=== PATIENT | female | born 1935 | race Caucasian/White ===

== ENCOUNTER → 2016-12-30 | Outpatient (CLI) | payer MEDICARE ==
[~2016-12-30] MED LIST: ADVIL200 M1 PO; ALEVE220 MG PO; CITRACAL + D M1 EACH PO; DULERA 200 MCG8.8 GM INH; DYMISTA NASAL S23 GM; FLOVENT DISKUS50 MCG INH; IPRATROPIUM BRO30 ML; KLONOPIN TAB 00.5 MG PO; LOSARTAN POTAS100 MG PO; NORCO 5-325 TA1 EACH PO; PRAVASTATIN SOD10 MG PO; PREDNISONE2.5 MG PO; PROAIR HFA8.5 GM INH; PROTONIX 40 MG40 M1 PO; SINGULAIR10 MG PO; TESSALON PERLE100 MG PO; ZYRTEC10 M3 PO
[2016-12-30 12:19] LABS: RED BLOOD COUNT 3.93 M/UL (4.00-5.10); WHITE BLOOD COUNT 10.1 K/UL (4.5-11.0)
== END ==
LOC: OPSV2 11:30
PROVIDERS: Orthopaedic Surgery
DX: Z01.812 Encounter for preprocedural laboratory examination (principal); Z01.810 Encounter for preprocedural cardiovascular examination; Z01.818 Encounter for other preprocedural examination; S32.039A Unspecified fracture of third lumbar vertebra, initial encounter for closed fracture; Z88.0 Allergy status to penicillin; Z88.3 Allergy status to other anti-infective agents; Z88.8 Allergy status to other drugs, medicaments and biological substances
CPT/HCPCS: 36415; 71020; 80048; 81001; 85025; 93005

== ENCOUNTER → 2016-12-31 | Day surgery (SDC) | payer MEDICARE ==
[~2016-12-31] VITALS: Ht 157.5 cm; Wt 57.2 kg
== END | disposition home or self-care (01) ==
LOC: OR 10:02
PROVIDERS: Orthopaedic Surgery
PROC: 0QU03JZ Supplement Lumbar Vertebra with Synthetic Substitute, Percutaneous Approach (ICD-10-PCS; 2016-12-31)
PROC: 0QB03ZX Excision of Lumbar Vertebra, Percutaneous Approach, Diagnostic (ICD-10-PCS; 2016-12-31)
PROC: 0QS03ZZ Reposition Lumbar Vertebra, Percutaneous Approach (ICD-10-PCS; principal; 2016-12-31 14:45)
DX: S32.039A Unspecified fracture of third lumbar vertebra, initial encounter for closed fracture (principal); M81.0 Age-related osteoporosis without current pathological fracture; I10 Essential (primary) hypertension; J45.909 Unspecified asthma, uncomplicated; M19.90 Unspecified osteoarthritis, unspecified site; K21.9 Gastro-esophageal reflux disease without esophagitis; G89.29 Other chronic pain; Z79.52 Long term (current) use of systemic steroids; Z88.0 Allergy status to penicillin; Z88.1 Allergy status to other antibiotic agents; Z88.8 Allergy status to other drugs, medicaments and biological substances; Z79.899 Other long term (current) drug therapy; Z96.642 Presence of left artificial hip joint; Z90.49 Acquired absence of other specified parts of digestive tract; Z98.41 Cataract extraction status, right eye; Z98.42 Cataract extraction status, left eye; X50.0XXA Overexertion from strenuous movement or load, initial encounter
CPT/HCPCS: 20240; J2270; J2930; J3010; J7030; J7120; Q9962

== ENCOUNTER → 2020-11-08 | Outpatient (CLI) | payer MEDICARE | LOC: HEART 5 14:28 | DX: R05 Cough (principal); R06.02 Shortness of breath; R91.8 Other nonspecific abnormal finding of lung field; S22.008A Other fracture of unspecified thoracic vertebra, initial encounter for closed fracture; R94.2 Abnormal results of pulmonary function studies; X58.XXXA Exposure to other specified factors, initial encounter | CPT/HCPCS: 71046; 94060; 94729 ==

== ENCOUNTER 2021-05-08 16:30 | Inpatient (IN) | payer MEDICARE ==
[~2021-05-08] VITALS: Ht 157.5 cm; Wt 44.5 kg
[~2021-05-08 16:30] MED LIST changes: -KLONOPIN TAB 00.5 MG PO; -LOSARTAN POTAS100 MG PO; -PRAVASTATIN SOD10 MG PO; -PREDNISONE2.5 MG PO; -PROAIR HFA8.5 GM INH; -PROTONIX 40 MG40 M1 PO
[2021-05-08 18:37] LABS: BUN/CREATININE RATIO 20 (0-10)
[2021-05-08 18:53] LABS: HEMOGLOBIN 12.1 gm/dl (12.3-15.3); RED BLOOD COUNT 4.01 M/UL (4.00-5.10); WHITE BLOOD COUNT 18.7 K/UL (4.5-11.0)
[2021-05-09 06:15] LABS: HEMOGLOBIN 11.7 gm/dl (12.3-15.3); RED BLOOD COUNT 3.75 M/UL (4.00-5.10)
[2021-05-09 06:23] LABS: WHITE BLOOD COUNT 11.7 K/UL (4.5-11.0)
[2021-05-09 06:41] LABS: BUN/CREATININE RATIO 18 (0-10)
[2021-05-09] MEDS ORDERED: PROTONIX 40 MG40 M1 PO (11:47)
[2021-05-09] MEDS ORDERED: PREDNISONE5 MG PO (11:48)
[2021-05-09] MEDS ORDERED: MYRBETRIQ25 MG PO (11:48)
[2021-05-09] MEDS ORDERED: BUDESONIDE-FO10.2 G1 INH (11:49)
[2021-05-09] MEDS ORDERED: SPIRIVA HANDIH18 MCG INH (11:50)
[2021-05-09] MEDS ORDERED: COZAAR 50MG TAB50 MG PO (11:53)
[2021-05-09] MEDS ORDERED: PROAIR HFA8.5 GM INH (11:54)
[2021-05-09] MEDS ORDERED: PRAVASTATIN SOD10 MG PO (11:56)
[2021-05-09] MEDS ORDERED: KLONOPIN2 MG PO (12:03)
[2021-05-09] MEDS ORDERED: SENNA S TABLET1 EACH PO (12:46)
[2021-05-09] MEDS ORDERED: MIRALAX17 GM PO (12:47)
[2021-05-09] MEDS ORDERED: ESTRACE42.5 GM TOP (12:50)
[2021-05-09] MEDS ORDERED: MULTIVITAMIN1 EACH PO (12:51)
[2021-05-09] MEDS ORDERED: LIDOCAINE1 EAC1 TP (12:51)
[2021-05-10 00:50] LABS: RED BLOOD COUNT 3.52 M/UL (4.00-5.10)
[2021-05-10 00:53] LABS: WHITE BLOOD COUNT 15.7 K/UL (4.5-11.0)
[2021-05-10 01:09] LABS: BUN/CREATININE RATIO 21 (0-10)
[2021-05-11 07:35] LABS: HEMOGLOBIN 9.3 gm/dl (12.3-15.3); WHITE BLOOD COUNT 15.3 K/UL (4.5-11.0)
[2021-05-11 07:52] LABS: RED BLOOD COUNT 3.13 M/UL (4.00-5.10)
[2021-05-11 08:34] LABS: BUN/CREATININE RATIO 24 (0-10)
[2021-05-11 18:07] LABS: BUN/CREATININE RATIO 29 (0-10)
[2021-05-12 08:02] LABS: HEMOGLOBIN 9.2 gm/dl (12.3-15.3); RED BLOOD COUNT 3.14 M/UL (4.00-5.10); WHITE BLOOD COUNT 15.7 K/UL (4.5-11.0)
[2021-05-12 08:18] LABS: BUN/CREATININE RATIO 20 (0-10)
[2021-05-13 07:16] LABS: HEMOGLOBIN 8.8 gm/dl (12.3-15.3); RED BLOOD COUNT 2.99 M/UL (4.00-5.10)
[2021-05-13 07:20] LABS: WHITE BLOOD COUNT 11.5 K/UL (4.5-11.0)
[2021-05-13 07:34] LABS: BUN/CREATININE RATIO 18 (0-10)
[2021-05-13 17:41] LABS: BORDETELLA PARAPERTUSSIS Not Detected (Not Detectd); BORDETELLA PERTUSSIS Not Detected (Not Detectd); CHLAMYDIA PNEUMONIAE Not Detected (Not Detectd); CORONAVIRUS HKU1 Not Detected (Not Detectd); CORONAVIRUS NL63 Not Detected (Not Detectd); CORONAVIRUS OC43 Not Detected (Not Detectd); CORONOAVIRUS 229E Not Detected (Not Detectd); HUMAN METAPNEUMOVIRUS Not Detected (Not Detectd); HUMAN RHINOVIRUS/ENTEROVIRUS Not Detected (Not Detectd); INFLUENZA A Not Detected (Not Detectd); INFLUENZA B Not Detected (Not Detectd); MYCOPLASMA PNEUMONIAE Not Detected (Not Detectd); PARAINFLUENZA VIRUS 1 Not Detected (Not Detectd); PARAINFLUENZA VIRUS 2 Not Detected (Not Detectd); PARAINFLUENZA VIRUS 3 Not Detected (Not Detectd); PARAINFLUENZA VIRUS 4 Not Detected (Not Detectd); RESPIRATORY SYNCYTIAL VIRUS Not Detected (Not Detectd)
[2021-05-13 22:40] LABS: SARS-CoV-2 NOT DETECTED (Not Detectd)
[2021-05-14 08:23] LABS: HEMOGLOBIN 9.5 gm/dl (12.3-15.3); WHITE BLOOD COUNT 11.7 K/UL (4.5-11.0)
[2021-05-14 08:28] LABS: RED BLOOD COUNT 3.31 M/UL (4.00-5.10)
[2021-05-14 08:43] LABS: BUN/CREATININE RATIO 23 (0-10)
[2021-05-15 06:12] LABS: RED BLOOD COUNT 2.77 M/UL (4.00-5.10)
[2021-05-15 06:35] LABS: BUN/CREATININE RATIO 21 (0-10)
--- NOTE | 2021-05-15 23:30 | NUR ---
2300- 250 ML NS BOLUS STARTED IN 20G IV IN RIGHT UPPER ARM. 2315- BOLUS COMPLETE. BP 99/58. 2ND 250 ML NS BOLUS STARTED. 2330- BOLUS COMPLETE. BP 110/53.
[2021-05-16 07:36] LABS: BUN/CREATININE RATIO 26 (0-10)
[2021-05-16 07:42] LABS: HEMOGLOBIN 8.7 gm/dl (12.3-15.3); RED BLOOD COUNT 2.91 M/UL (4.00-5.10); WHITE BLOOD COUNT 10.1 K/UL (4.5-11.0)
[2021-05-17 07:46] LABS: HEMOGLOBIN 8.3 gm/dl (12.3-15.3); RED BLOOD COUNT 2.84 M/UL (4.00-5.10); WHITE BLOOD COUNT 10.7 K/UL (4.5-11.0)
[2021-05-17 07:51] LABS: BUN/CREATININE RATIO 21 (0-10)
[2021-05-17] MEDS ORDERED: HYDROCODON-ACE1 EAC4 PO (11:18)
[2021-05-17] MEDS ORDERED: LEVOFLOXACIN750 MG PO (11:24)
[2021-05-17] MEDS ORDERED: ELIQUIS 2.5 MG2.5 MG PO (14:15)
--- NOTE | 2021-05-17 16:08 | NUR ---
CHANGED AQUACEL PER [facility] VERBAL ORDER SITE CDI.
--- NOTE | 2021-05-18 10:53 | NUR ---
05/17/21 GAVE REPORT TO KELLI FROM [employer] FOR PT DC INSTRUCTIONS
== END 2021-05-18 20:01 | disposition home health service (06) | DRG 521 ==
LOC: ER1 16:30 → CDU 20:32 → M/S 20:32 → CDU 05-09 18:04 → M/S 05-09 18:40
PROVIDERS: Internal Medicine; Internal Medicine Nephrology; Orthopaedic Surgery; Physician Assistant; Physician Assistant Medical; Student in an Organized Health Care Education/Training Program; ADMIT Internal Medicine
PROC: 0SRR0JA Replacement of Right Hip Joint, Femoral Surface with Synthetic Substitute, Uncemented, Open Approach (ICD-10-PCS; principal; 2021-05-09 09:30)
DX: S72.001A Fracture of unspecified part of neck of right femur, initial encounter for closed fracture (principal); I21.A1 Myocardial infarction type 2; J12.9 Viral pneumonia, unspecified; J96.21 Acute and chronic respiratory failure with hypoxia; J98.19 Other pulmonary collapse; E22.2 Syndrome of inappropriate secretion of antidiuretic hormone; E87.2 Acidosis; E44.1 Mild protein-calorie malnutrition; J98.11 Atelectasis; Z68.1 Body mass index [BMI] 19.9 or less, adult; Z20.822 Contact with and (suspected) exposure to COVID-19; K21.9 Gastro-esophageal reflux disease without esophagitis; Z96.642 Presence of left artificial hip joint; W18.30XA Fall on same level, unspecified, initial encounter; I10 Essential (primary) hypertension; E83.42 Hypomagnesemia; E87.6 Hypokalemia; D50.9 Iron deficiency anemia, unspecified; G89.29 Other chronic pain; M54.9 Dorsalgia, unspecified; F41.9 Anxiety disorder, unspecified; R53.81 Other malaise; Z99.81 Dependence on supplemental oxygen; Z79.52 Long term (current) use of systemic steroids; Z79.82 Long term (current) use of aspirin; Z90.49 Acquired absence of other specified parts of digestive tract; Y93.89 Activity, other specified; Y92.89 Other specified places as the place of occurrence of the external cause; Y99.8 Other external cause status; Z88.0 Allergy status to penicillin; Z88.1 Allergy status to other antibiotic agents
CPT/HCPCS: 36415; 71045; 73502; 80048; 80053; 81001; 82436; 82533; 82550; 82553; 82570; 82607; 82728; 82746; 83540; 83550; 83735; 83935; 84295; 84300; 84439; 84443; 84484; 85025; 85027; 85610; 87633; 93005; 94640; 94760; 96374; 97110; 97110-GP-CQ; 97116; 97116-GP-CQ; 97162; 97165; 97530; 97530-GP-CQ; 97535; 99285; C1776; J0690; J1100; J1170; J1335; J1956; J2001; J2270; J2405; J2704; J2795; J3480; J7030; J7120; Q9967; U0002

== ENCOUNTER → 2021-08-22 | Outpatient (CLI) | payer MEDICARE ==
[~2021-08-22] MED LIST changes: +BUDESONIDE-FO10.2 G1 INH; +COZAAR 50MG TAB50 MG PO; +ELIQUIS 2.5 MG2.5 MG PO; +ESTRACE42.5 GM TOP; +HYDROCODON-ACE1 EAC4 PO; +KLONOPIN2 MG PO; +LEVOFLOXACIN750 MG PO; +LIDOCAINE1 EAC1 TP; +MIRALAX17 GM PO; +MULTIVITAMIN1 EACH PO; +MYRBETRIQ25 MG PO; +PRAVASTATIN SOD10 MG PO; +PREDNISONE5 MG PO; +PROAIR HFA8.5 GM INH; +PROTONIX 40 MG40 M1 PO; +SENNA S TABLET1 EACH PO; +SPIRIVA HANDIH18 MCG INH
== END ==
LOC: MRI 08-17 10:00 → KOH-I 12:51 → MRI 13:45
DX: S32.030A Wedge compression fracture of third lumbar vertebra, initial encounter for closed fracture (principal); M81.0 Age-related osteoporosis without current pathological fracture; M54.50 Low back pain, unspecified; M40.204 Unspecified kyphosis, thoracic region; S22.080A Wedge compression fracture of T11-T12 vertebra, initial encounter for closed fracture
CPT/HCPCS: 72146; 72148

== ENCOUNTER 2022-02-24 10:30 | Observation (INO) | payer MEDICARE ==
[~2022-02-24] VITALS: Ht 157.5 cm; Wt 45.4 kg
[~2022-02-24 10:30] MED LIST changes: -LIDOCAINE1 EAC1 TP; +Lidocaine 5% TOP
[2022-02-24 11:13] LABS: HEMOGLOBIN 13.1 gm/dl (12.3-15.3); RED BLOOD COUNT 4.07 M/UL (4.00-5.10); WHITE BLOOD COUNT 17.9 K/UL (4.5-11.0)
[2022-02-24 11:40] LABS: BUN/CREATININE RATIO 23 (0-10)
[2022-02-24] MEDS ORDERED: ACETAMINOPHEN-1 EAC1 PO (14:42)
[2022-02-24] MEDS ORDERED: FLONASE 0.05% N16 GM (14:44)
[2022-02-24] MEDS ORDERED: LOSARTAN POTASS50 MG PO (14:47)
[2022-02-24] MEDS ORDERED: METHOCARBAMOL500 MG PO (14:48)
[2022-02-24] MEDS ORDERED: FLOMAX 0.4 MG0.4 MG PO (14:54)
[2022-02-25 02:39] LABS: HEMOGLOBIN 11.4 gm/dl (12.3-15.3)
[2022-02-25 02:43] LABS: RED BLOOD COUNT 3.57 M/UL (4.00-5.10); WHITE BLOOD COUNT 10.4 K/UL (4.5-11.0)
[2022-02-25 03:31] LABS: BUN/CREATININE RATIO 19 (0-10)
[2022-02-25] MEDS ORDERED: LEVOFLOXACIN500 MG PO (08:44)
== END 2022-02-25 10:10 | disposition home or self-care (01) ==
LOC: ER1 10:30 → CDU 13:12 → M/S 13:12
PROVIDERS: Emergency Medicine; Physician Assistant; ADMIT Internal Medicine
DX: J18.9 Pneumonia, unspecified organism (principal); J96.11 Chronic respiratory failure with hypoxia; Z20.822 Contact with and (suspected) exposure to COVID-19; I10 Essential (primary) hypertension; J45.909 Unspecified asthma, uncomplicated; H91.90 Unspecified hearing loss, unspecified ear; M19.90 Unspecified osteoarthritis, unspecified site; Z79.51 Long term (current) use of inhaled steroids; Z79.52 Long term (current) use of systemic steroids; Z88.0 Allergy status to penicillin; Z88.1 Allergy status to other antibiotic agents; Z88.8 Allergy status to other drugs, medicaments and biological substances
CPT/HCPCS: 71046; 80048; 80053; 83605; 83735; 84484; 85025; 86140; 87040; 93005; 96374; 99285; G0378; J1956; U0002